=== PATIENT | female | born 1990 | race American Indian/Alaskan Native ===

== ENCOUNTER 2016-09-20 07:42 | Emergency (ER) | payer OTHER ==
[2016-09-20 08:57] LABS: Basophils % (Auto) 0.1 % (0.0-1.8); Eosinophils % (Auto) 0.3 % (0.0-4.3); Hemoglobin 13.1 gm/dl (10.1-14.3); Mean Corpuscular HGB Conc 33 % (30-34); Mean Corpuscular Hemoglobin 27 pg (28-32); Mean Corpuscular Volume 82 fl (79-97); Platelet Count 248 K/mm3 (140-440); Red Blood Count 4.89 M/mm3 (3.65-5.03); Red Cell Distribution Width 12.8 % (13.2-15.2); White Blood Count 4.8 K/mm3 (4.5-11.0)
[2016-09-20 09:01] LABS: Alanine Aminotransferase 14 units/L (7-56); Albumin 4.4 g/dL (3.9-5); Albumin/Globulin Ratio 1.3 %; Alkaline Phosphatase 60 units/L (35-129); Anion Gap 17 mmol/L; BUN/Creatinine Ratio 11.66; Bilirubin,Total 0.6 mg/dL (0.1-1.2); Blood Urea Nitrogen 7 mg/dL (7-17); Calcium 8.8 mg/dL (8.4-10.2); Carbon Dioxide 24 mmol/L (22-30); Chloride 101.1 mmol/L (98-107); Glucose 99 mg/dL (65-100); Lipase 84 units/L (13-60); Potassium 4.3 mmol/L (3.6-5.0); Sodium 138 mmol/L (137-145); Total Protein 7.8 g/dL (6.3-8.2)
[2016-09-20 10:05] LABS: Bacteria,Urine 2+ /HPF (Negative); Bilirubin,Urine NEG (Negative); Blood,Urine MOD (Negative); Ketones,Urine NEG (Negative); Leukocyte Esterase,Urine MOD (Negative); Mucus,Urine FEW /HPF; Nitrite,Urine NEG (Negative); Protein,Urine <15 mg/dL mg/dL (Negative); Urobilinogen,Urine < 2.0 mg/dL (<2.0)
[2016-09-20] MEDS ORDERED: NACL 0.9% 1000 ML 1,000 ML IV ONE (16:37)
[2016-09-20] MEDS ORDERED: ROCEPHIN/NS 1 GM/50 ML 1 GM/50 ML BAG IV ONE (16:37)
[2016-09-20] MEDS ORDERED: TORADOL IV ONE (16:37)
[2016-09-20] MEDS ORDERED: ZOFRAN IV ONE (16:37)
--- NOTE | 2016-09-20 16:40 | Emergency Department Report ---
ED General Adult HPI - General Chief complaint: Abdominal Pain Stated complaint: LUPUS/NAUSEA/DEHYDRATED Time Seen by Provider: 09/20/16 16:30 Source: patient, RN notes reviewed Mode of arrival: Ambulatory Limitations: No Limitations - History of Present Illness Initial comments: Primary care Dr.: Dr. Overton Rheumatology: Dr. Villafuerte at [facility] This is a 26-year-old female. She is previously unknown to me. She has a past medical history of lupus, and is on chronic plaquenil. She reports not being on any other immune modulating medications. The patient presents to the ER with 2 complaints. Her first complaint is left-sided dental pain, which is over chronically known fractured tooth (#16.) Pain has gotten slightly worse over the past 5-6 days. Her next complaint is bilateral flank pain, urinary frequency, nausea and vomiting. There is no lower abdominal pain. She reports having increased urinary frequency. She reports that "my kidneys are hurting me." She is defecating normally. There is no vaginal discharge. No suprapubic pain. Reports that she is not . No fevers. She thinks that she ate something that causes her have nausea and vomiting. She denies diarrhea to me. This is been going on for 2 days. -: Gradual Location: mouth, back Radiation: non-radiation Quality: aching Consistency: intermittent Improves with: rest Worsens with: movement Associated Symptoms: nausea/vomiting. denies: confusion, chest pain, cough, diaphoresis, fever/chills - Related Data Previous Rx's Medication Instructions Recorded Last Taken Type Amoxicillin/K Clav Tab [Augmentin 1 tab PO Q12HR #16 tab 09/20/16 Unknown Rx 875 mg] Ketorolac [Toradol] 10 mg PO Q6H PRN #20 tablet 09/20/16 Unknown Rx Ondansetron [Zofran Odt] 4 mg PO QID PRN #20 tab.rapdis 09/20/16 Unknown Rx oxyCODONE [Roxicodone] 5 mg PO Q6HR PRN #15 tablet 09/20/16 Unknown Rx Allergies Allergy/AdvReac Type Severity Reaction Status Date / Time acetaminophen Allergy Anaphylaxis Verified 09/20/16 08:02 [From Darvocet-N] propoxyphene napsylate Allergy Anaphylaxis Verified 09/20/16 08:02 [From Darvocet-N] Sulfa (Sulfonamide Allergy Itching Verified 09/20/16 08:02 Antibiotics) ED Review of Systems ROS: Stated complaint: LUPUS/NAUSEA/DEHYDRATED Other details as noted in HPI Constitutional: denies: fever Eyes: denies: vision change ENT: dental pain. denies: epistaxis Respiratory: denies: cough Cardiovascular: denies: chest pain Gastrointestinal: nausea Genitourinary: denies: dysuria Musculoskeletal: back pain Skin: denies: lesions Neurological: denies: headache Psychiatric: as per HPI ED Past Medical Hx - Past Medical History Additional medical history: Lupus - Surgical History Additional Surgical History: - Social History Smoking Status: Never Smoker Substance Use Type: Marijuana - Medications Home Medications: Home Medications Medication Instructions Recorded Confirmed Last Taken Type Amoxicillin/K Clav Tab [Augmentin 1 tab PO Q12HR #16 tab 09/20/16 Unknown Rx 875 mg] Ketorolac [Toradol] 10 mg PO Q6H PRN #20 tablet 09/20/16 Unknown Rx Ondansetron [Zofran Odt] 4 mg PO QID PRN #20 tab.rapdis 09/20/16 Unknown Rx oxyCODONE [Roxicodone] 5 mg PO Q6HR PRN #15 tablet 09/20/16 Unknown Rx ED Physical Exam - General Limitations: No Limitations General appearance: alert, in no apparent distress - Head Head exam: Present: atraumatic, normocephalic - Eye Eye exam: Present: normal appearance, EOMI. Absent: nystagmus - ENT ENT exam: Present: normal exam, normal orophraynx, mucous membranes moist, TM's normal bilaterally, normal external ear exam, other (chronically fractured tooth #16 is noted. There is no trismus or malocclusion. There is minimal gingival swelling. There is no stridor, there is no elevation at the base of the tongue.). Absent: mucous membranes dry - Neck Neck exam: Present: normal inspection, full ROM. Absent: tenderness, meningismus - Respiratory Respiratory exam: Present: normal lung sounds bilaterally. Absent: respiratory distress, wheezes, rales, rhonchi, stridor, chest wall tenderness, accessory muscle use, decreased breath sounds, prolonged expiratory - Cardiovascular Cardiovascular Exam: Present: regular rate, normal rhythm, normal heart sounds. Absent: bradycardia, tachycardia, irregular rhythm, systolic murmur, diastolic murmur, rubs, gallop - GI/Abdominal GI/Abdominal exam: Present: soft, normal bowel sounds. Absent: distended, tenderness, guarding, rebound, rigid, pulsatile mass - Extremities Exam Extremities exam: Present: normal inspection, full ROM, normal capillary refill. Absent: pedal edema, joint swelling, calf tenderness - Back Exam Back exam: Present: normal inspection, CVA tenderness (R), CVA tenderness (L) - Neurological Exam Neurological exam: Present: alert, oriented X3, normal gait, other (Extraocular movements intact. Tongue midline. No facial droop. Facial sensation intact to light touch in the V1, V2, V3 distribution bilaterally. 5 and 5 strength in 4 extremities.. Sensation is intact to light touch in 4 extremities.). Absent : motor sensory deficit - Psychiatric Psychiatric exam: Present: normal affect, normal mood - Skin Skin exam: Present: warm, dry, intact, normal color. Absent: rash ED Course Vital Signs 09/20/16 09/20/16 09/20/16 08:03 17:28 18:55 Temperature 98.8 F Pulse Rate 91 H 82 94 H Respiratory 18 20 18 Rate Blood Pressure 124/79 Blood Pressure 101/70 110/70 [Left] O2 Sat by Pulse 100 100 100 Oximetry - Reevaluation(s) Reevaluation #1: 09/20/16 17:36 Differential diagnosis: Pyelonephritis, mild, urinary tract infection, resolved nausea and vomiting, chronically fractured tooth #16 Assessment and plan: 26-year-old female with acute on chronic dental pain, mild possible superimposed gingivitis, mild pyelonephritis. She is afebrile with reassuring vital signs, tolerating liquid feeds. Minimal CVA tenderness, no lower abdominal tenderness, rebound or guarding. On my initial evaluation, she is tolerating liquid feeds, playing on a cellular phone. He looks quite comfortable. Laboratory studies reviewed and appreciated. I don't believe she requires advanced imaging based on her benign clinical presentation at this time. She will be treated with pain medication, loaded with ceftriaxone, discharged with Augmentin, structure to follow up with primary care, and dental. She'll be discharged at this time. Return precautions are reviewed. ED Medical Decision Making - Lab Data Result diagrams: 09/20/16 08:26 09/20/16 08:26 Vital Signs 09/20/16 09/20/16 08:03 17:28 Temperature 98.8 F Pulse Rate 91 H 82 Respiratory 18 20 Rate Blood Pressure 124/79 Blood Pressure 101/70 [Left] O2 Sat by Pulse 100 100 Oximetry Lab Results 09/20/16 09/20/16 09/20/16 Range/Units 08:26 08:26 09:39 WBC 4.8 (4.5-11.0) K/mm3 RBC 4.89 (3.65-5.03) M/mm3 Hgb 13.1 (10.1-14.3) gm/dl Hct 40.0 (30.3-42.9) % MCV 82 (79-97) fl MCH 27 L (28-32) pg MCHC 33 (30-34) % RDW 12.8 L (13.2-15.2) % Plt Count 248 (140-440) K/mm3 Lymph % (Auto) 14.3 (13.4-35.0) % Shelby % (Auto) 8.9 H (0.0-7.3) % Eos % (Auto) 0.3 (0.0-4.3) % Baso % (Auto) 0.1 (0.0-1.8) % Lymph # 0.7 L (1.2-5.4) K/mm3 Shelby # 0.4 (0.0-0.8) K/mm3 Eos # 0.0 (0.0-0.4) K/mm3 Baso # 0.0 (0.0-0.1) K/mm3 Seg Neutrophils % 76.4 H (40.0-70.0) % Seg Neutrophils # 3.7 (1.8-7.7) K/mm3 Sodium 138 (137-145) mmol/L Potassium 4.3 (3.6-5.0) mmol/L Chloride 101.1 (98-107) mmol/L Carbon Dioxide 24 (22-30) mmol/L Anion Gap 17 mmol/L BUN 7 (7-17) mg/dL Creatinine 0.6 L (0.7-1.2) mg/dL Estimated GFR > 60 ml/min BUN/Creatinine Ratio 11.66 % Glucose 99 (65-100) mg/dL Calcium 8.8 (8.4-10.2) mg/dL Total Bilirubin 0.6 (0.1-1.2) mg/dL AST 19 (5-40) units/L ALT 14 (7-56) units/L Alkaline Phosphatase 60 (35-129) units/L Total Protein 7.8 (6.3-8.2) g/dL Albumin 4.4 (3.9-5) g/dL Albumin/Globulin Ratio 1.3 % Lipase 84 H (13-60) units/L Urine Color Yellow (Yellow) Urine Turbidity Clear (Clear) Urine pH 7.0 (5.0-7.0) Ur Specific [place] 1.015 (1.003-1.030) Urine Protein <15 mg/dl (Negative) mg/dL Urine Glucose (UA) Neg (Negative) mg/dL Urine Ketones Neg (Negative) mg/dL Urine Blood Mod (Negative) Urine Nitrite Neg (Negative) Ur Reducing Substances Not Reportable Urine Bilirubin Neg (Negative) Urine Ictotest Not Reportable Urine Urobilinogen < 2.0 (<2.0) mg/dL Ur Leukocyte Esterase Mod (Negative) Urine WBC (Auto) 19.0 H (0.0-6.0) /HPF Urine RBC (Auto) 61.0 (0.0-6.0) /HPF U Epithel Cells (Auto) 5.0 (0-13.0) /HPF Urine Bacteria (Auto) 2+ (Negative) /HPF Urine Mucus Few /HPF Urine HCG, Qual Negative (Negative) Critical care attestation.: If time is entered above; I have spent that time in minutes in the direct care of this critically ill patient, excluding procedure time. ED Disposition Clinical Impression: Acute flank pain, Pain, dental Disposition: DISCHARGED TO HOME OR SELFCARE Is pt being admited?: No Does the pt Need Aspirin: No Condition: Stable Instructions: Acute Pyelonephritis (ED), Toothache (ED) Additional Instructions: Take the medications as directed. If taking the oxycodone for pain, do not drive, consume alcohol, make important decisions. Cultures were sent today, was also be available in the next 3-5 days. Have a primary care doctor contact medical records department to obtain culture results. Follow up with a primary care doctor within the next week. Follow-up with a dentist within the next week. Return to the ER right away with new pain, worsened pain, migration of pain, fevers or chills, intractable nausea or vomiting, inability to tolerate liquid feeds. Prescriptions: Amoxicillin/K Clav Tab [Augmentin 875 mg] 1 tab PO Q12HR #16 tab Ketorolac [Toradol] 10 mg PO Q6H PRN #20 tablet PRN Reason: Pain Ondansetron [Zofran Odt] 4 mg PO QID PRN #20 tab.rapdis PRN Reason: Nausea oxyCODONE [Roxicodone] 5 mg PO Q6HR PRN #15 tablet PRN Reason: Pain Referrals: PRIMARY CAREMD [Primary Care Provider] - 3-5 Days JESSICA OVERTON MD [Referring] - 3-5 Days Forms: Work/School Release Form(ED)
[2016-09-20 18:59] VITALS: BP 110/70
== END 2016-09-20 18:57 | disposition home or self-care (01) ==
LOC: ED 07:42
DX: K08.89 Other specified disorders of teeth and supporting structures (principal); R10.9 Unspecified abdominal pain; F12.10 Cannabis abuse, uncomplicated; Z88.2 Allergy status to sulfonamides; Z88.8 Allergy status to other drugs, medicaments and biological substances
CPT/HCPCS: 36415; 80053; 81001; 81025; 83690; 85025; 87086; 96365; 96375; 99283; J0696; J1885; J2405; J7030

== ENCOUNTER 2017-07-23 18:49 | Emergency (ER) | payer SELFPAY ==
[2017-07-23 19:37] VITALS: BP 127/88
[2017-07-24] MEDS ORDERED: XYLOCAINE 1% 20 mL INFILTRATI ONE (03:35)
--- NOTE | 2017-07-24 05:08 | Emergency Department Report ---
Abscess Boil HPI - HPI Chief Complaint: Skin/Abscess/Foreign Body Stated Complaint: BOIL UNDER LEFT ARM Time Seen by Provider: 07/24/17 04:36 Duration: 5 Days Location: Other (left axillary) History: Yes Pain, Yes Purulent Drainage, Yes Previous History, No Fever, No Numbness, No Foreign Body, No Insect Bite Home Medications: Previous Rx's Medication Instructions Recorded Last Taken Type Amoxicillin/K Clav Tab [Augmentin 1 tab PO Q12HR #16 tab 09/20/16 Unknown Rx 875 mg] Ketorolac [Toradol] 10 mg PO Q6H PRN #20 tablet 09/20/16 Unknown Rx Ondansetron [Zofran Odt] 4 mg PO QID PRN #20 tab.rapdis 09/20/16 Unknown Rx oxyCODONE [Roxicodone] 5 mg PO Q6HR PRN #15 tablet 09/20/16 Unknown Rx Clindamycin [Clindamycin CAP] 300 mg PO Q6HR #56 capsule 07/24/17 Unknown Rx traMADol [Ultram] 50 mg PO Q6HR PRN #20 tablet 07/24/17 Unknown Rx Allergies/Adverse Reactions: Allergies Allergy/AdvReac Type Severity Reaction Status Date / Time acetaminophen Allergy Anaphylaxis Verified 09/20/16 08:02 [From Darvocet-N] propoxyphene napsylate Allergy Anaphylaxis Verified 09/20/16 08:02 [From Darvocet-N] Sulfa (Sulfonamide Allergy Itching Verified 09/20/16 08:02 Antibiotics) ED Review of Systems ROS: Stated complaint: BOIL UNDER LEFT ARM Other details as noted in HPI Constitutional: denies: chills, fever Eyes: denies: eye pain, eye discharge, vision change ENT: denies: ear pain, throat pain Respiratory: denies: cough, shortness of breath, wheezing Cardiovascular: denies: chest pain, palpitations Endocrine: no symptoms reported Gastrointestinal: denies: abdominal pain, nausea, diarrhea Genitourinary: denies: urgency, dysuria, discharge Musculoskeletal: denies: back pain, joint swelling, arthralgia Skin: other (left axillary abscess ) Neurological: denies: headache, weakness, paresthesias Psychiatric: denies: anxiety, depression Hematological/Lymphatic: denies: easy bleeding, easy bruising ED Past Medical Hx - Past Medical History Additional medical history: Lupus - Surgical History Additional Surgical History: - Social History Smoking Status: Never Smoker Substance Use Type: Alcohol, Marijuana - Medications Home Medications: Home Medications Medication Instructions Recorded Confirmed Last Taken Type Amoxicillin/K Clav Tab [Augmentin 1 tab PO Q12HR #16 tab 09/20/16 Unknown Rx 875 mg] Ketorolac [Toradol] 10 mg PO Q6H PRN #20 tablet 09/20/16 Unknown Rx Ondansetron [Zofran Odt] 4 mg PO QID PRN #20 tab.rapdis 09/20/16 Unknown Rx oxyCODONE [Roxicodone] 5 mg PO Q6HR PRN #15 tablet 09/20/16 Unknown Rx Clindamycin [Clindamycin CAP] 300 mg PO Q6HR #56 capsule 07/24/17 Unknown Rx traMADol [Ultram] 50 mg PO Q6HR PRN #20 tablet 07/24/17 Unknown Rx ED Abscess Boil Physical Exam - Exam General: Vital signs noted. No distress. Alert and acting appropriately. Front/Back of Body, Lg (Color): 1 - left axillary abscess 2x3 cm fluctuant Size: 3 cm Exam: Yes Tenderness, Yes Fluctuance, Yes Surrounding Cellulites/Erythema, Yes Normal Neurologic Exam, Yes Normal Circulation, No Lymphangitis, No Crepitation , No Heart Murmur I & D Note - I & D Note I & D Note: left axillary abscess 2x3 cm fluctuant erythema painful, site cleaned wtih betadine solution anesthesia with lidocain 1% 2 cc, incision with 11 blade, moderate purulent output wound blunt probed with forceps, inoculations relieved wound irrigated with 40 cc steril saline, steril dressing applied all bleeding controlled pt given wound care instructions , pt verbalized agreement and understanding of same, pt tolerated procedure with minimal distress ED Course Vital Signs 07/23/17 19:33 Temperature 98.7 F Pulse Rate 108 H Respiratory 17 Rate Blood Pressure 127/88 O2 Sat by Pulse 99 Oximetry Critical care attestation.: If time is entered above; I have spent that time in minutes in the direct care of this critically ill patient, excluding procedure time. ED Medical Decision Making - Medical Decision Making left axillary abscess for i&d see procedure note, all bleeding controlled pt will follow up with pcp in 2-3 days for wound check , will dc to home in stable condition with rx for clindamycin, ultram, pt verbalized agreement and understanding of discharge plan. ED Disposition Clinical Impression: Abscess of axilla, left Disposition: DC-01 TO HOME OR SELFCARE Is pt being admited?: No Does the pt Need Aspirin: No Condition: Good Instructions: Abscess (ED) Prescriptions: Clindamycin [Clindamycin CAP] 300 mg PO Q6HR #56 capsule traMADol [Ultram] 50 mg PO Q6HR PRN #20 tablet PRN Reason: Pain Referrals: PRIMARY CARE,MD [Primary Care Provider] - 3-5 Days Forms: Work/School Release Form(ED) Time of Disposition: 05:13
== END 2017-07-24 05:20 | disposition home or self-care (01) ==
LOC: ED 18:49
DX: L02.412 Cutaneous abscess of left axilla (principal); F12.10 Cannabis abuse, uncomplicated; M32.9 Systemic lupus erythematosus, unspecified; Z88.6 Allergy status to analgesic agent; Z88.8 Allergy status to other drugs, medicaments and biological substances

== ENCOUNTER 2018-10-02 18:03 | Emergency (ER) | payer OTHER ==
[2018-10-02 18:47] VITALS: BP 115/66
--- NOTE | 2018-10-02 18:47 | Emergency Department Report ---
Chief Complaint: Vaginal Bleeding Stated Complaint: 8WKS CRAMPING AND BLEEDING Time Seen by Provider: 10/02/18 18:45 - HPI History of Present Illness: pt presents for vaginal spotting that started last night suprapubic cramping no urinary sx her OB group is: [facility], pt is 8 weeks , has had OB US /P:1/A:0 MSE screening note: Focused history and physical exam performed. Due to findings the following was ordered: labs, UA ED Disposition for MSE Condition: Stable
[2018-10-02 19:32] LABS: Basophils # (Auto) 0.1 K/mm3 (0.0-0.1); Basophils % (Auto) 2.4 % (0.0-1.8); Eosinophils % (Auto) 1.1 % (0.0-4.3); Hemoglobin 12.3 gm/dl (10.1-14.3); Lymphocytes # (Auto) 1.3 K/mm3 (1.2-5.4); Mean Corpuscular HGB Conc 34 % (30-34); Mean Corpuscular Volume 85 fl (79-97); Monocytes # (Auto) 0.4 K/mm3 (0.0-0.8); Monocytes % (Auto) 15.2 % (0.0-7.3); Platelet Count 282 K/mm3 (140-440); Red Blood Count 4.25 M/mm3 (3.65-5.03)
[2018-10-02 20:20] LABS: Bilirubin,Urine NEG (Negative); Blood,Urine NEG (Negative); Color,Urine Straw (Yellow); Protein,Urine <15 mg/dL mg/dL (Negative); RBC,Urine < 1.0 /HPF (0.0-6.0); Urobilinogen,Urine < 2.0 mg/dL (<2.0); WBC,Urine < 1.0 /HPF (0.0-6.0)
== END 2018-10-02 22:30 | disposition left against medical advice (07) ==
LOC: ED 18:03
DX: O46.91 Antepartum hemorrhage, unspecified, first trimester (principal); Z3A.08 8 weeks gestation of pregnancy; Z53.21 Procedure and treatment not carried out due to patient leaving prior to being seen by health care provider
CPT/HCPCS: 36415; 81001; 84702; 85025; 86900; 86901

== ENCOUNTER 2019-05-20 17:44 | Outpatient (CLI) | payer OTHER ==
[2019-05-20] MEDS ORDERED: TERBUTALINE 1 MG/1 ML INJ SUB-Q ONE (20:13)
[2019-05-20 20:20] LABS: Amphetamine Screen,Urine PRESUMPTIVE NEGATIVE; Benzodiazepines Screen,Urine PRESUMPTIVE NEGATIVE; Cannabinoid Screen,Urine PRESUMPTIVE NEGATIVE; Cocaine Screen,Urine PRESUMPTIVE NEGATIVE; Methadone Screen,Urine PRESUMPTIVE NEGATIVE; Opiate Screen,Urine PRESUMPTIVE NEGATIVE
[2019-05-20 20:21] LABS: Bilirubin,Urine NEG (Negative); Blood,Urine NEG (Negative); Color,Urine Yellow (Yellow); Mucus,Urine FEW /HPF; Protein,Urine <15 mg/dL mg/dL (Negative); Urobilinogen,Urine < 2.0 mg/dL (<2.0)
[2019-05-20 20:27] LABS: Alanine Aminotransferase 22 units/L (7-56); Uric Acid 4.2 mg/dL (3.5-7.6)
[2019-05-20 20:39] LABS: Hematocrit 38.9 % (30.3-42.9); Hemoglobin 12.9 gm/dl (10.1-14.3); Mean Corpuscular HGB Conc 33 % (30-34); Mean Corpuscular Volume 84 fl (79-97); Platelet Count 297 K/mm3 (140-440); Red Blood Count 4.64 M/mm3 (3.65-5.03); Red Cell Distribution Width 16.5 % (13.2-15.2)
[2019-05-20 21:15] VITALS: BP 109/64
== END 2019-05-20 22:04 | disposition home or self-care (01) ==
LOC: TRG 17:44
PROVIDERS: ATTEND Obstetrics & Gynecology
DX: O26.893 Other specified pregnancy related conditions, third trimester (principal); R42 Dizziness and giddiness; R11.0 Nausea; R60.0 Localized edema; O99.89 Other specified diseases and conditions complicating pregnancy, childbirth and the puerperium; H53.8 Other visual disturbances; O47.1 False labor at or after 37 completed weeks of gestation; Z3A.37 37 weeks gestation of pregnancy
CPT/HCPCS: 36415; 59025; 80307; 81001; 82565; 82962; 83615; 84450; 84460; 84550; 85027; 96372; J3105

== ENCOUNTER 2019-05-28 09:34 | Inpatient (IN) | payer OTHER ==
--- NOTE | 2019-05-27 15:05 | History and Physical Report ---
History of Present Illness Date of examination: 05/23/19 Chief complaint: Desires repeat c/s History of present illness: Past History : 2 Term Births: 1 Premature Births: 0 Living Children: 1 Para: 1 Mult. Births: 0 Prev : 1 Prev. attempt? none Aborta: 0 Elect. Ab: 0 Spont. Ab: 0 Ectopics: 0 # 1 Delivery date: 10/24/2010 Weeks Gestation: 41 labor: no Delivery type: Anesthesia type: epidural Delivery location: [facility] Infant Sex: Female weight: 9-15 Comments: meconium aspiration, distress Risk Factors: Smoked Tobacco Use: Former smoker Smokeless Tobacco Use: Never Counseled to quit/cut down: yes Passive smoke exposure: no Drug use: no HIV high-risk behavior: low risk Alcohol use: no Seatbelt use: preg-food counselor % Dietary Counseling: pn yes Past Medical History: sickle cell trait + Autoimmune Disorder: Sjogren, Raynauds and discoid lupus Dr. Villafuerte Past Medical History Abnormal PAP: positive BRIAN Exposure: negative Infertility: negative Uterine Anomaly: negative Uterine Surgery (not C/S): negative Other Gynecologic Problems: negative Social Hx: Patient is single. lives with FOC and child. Smoking History: Patient currently smokes every day. Patient has been counseled to quit. Infection History Hx of STD: none HIV Risk Eval: low risk Hepatitis B Risk Eval: low risk Personal hx. of genital herpes: no Partner hx. of genital herpes: no Rash, Viral, or Febrile illness since last LMP? no Varicella/Chicken Pox Status: Previous Disease TB Risk: no Genetic History Congenital Heart Defect: Mom: no Dad: no James Disease: Mom: no Dad: no Thalassemia Mom: no Dad: no Neural Tube Defect Mom: no Dad: no Down's Syndrome Mom: no Dad: no Ajay-Sachs Mom: no Dad: no Sickle Cell Disease/Trait Mom: yes Dad: no Hemophilia Mom: no Dad: no Muscular Dystrophy Mom: no Dad: no Cystic Fibrosis Mom: no Dad: no Marshall Chorea Mom: no Dad: no Mental Retardation Mom: no Dad: no Fragile X Mom: no Dad: no Other Genetic/Chromosomal Disorder Mom: no Dad: no Child w/other defect Mom: no Dad: no Enviromental Exposures Enviromental Exposures Reviewed Xray Exposure: no Medication, drug, or alcohol use since LMP: no Chemical/Other Exposure: no Exposure to Cat Liter: no Hx of Parvovirus (Fifth Disease): no Occupational Exposure to Children: none Active Medications (reviewed today): PLUS 27-1 MG ORAL TABLET ( VIT-FE FUMARATE-FA) 1 po daily PREDNISONE 5 MG ORAL TABLET (PREDNISONE) QOD since the beginning of the Current Allergies (reviewed today): SULFA (Critical) BACTRIM (Critical) Physical Exam General appearance: well nourished, healthy appearing, no distress Chest/Lungs: respiratory effort normal, lungs clear to auscultation Cardiovascular: normal rate and rhythm Abdomen/GI: soft, nontender Past History - Obstetrical History Expected Date of Delivery: 06/04/19 Actual Gestation: 38 Week(s) 6 Day(s) : 2 Para: 1 Hx # Term Pregnancies: 1 (c/s) Medications and Allergies Allergies Allergy/AdvReac Type Severity Reaction Status Date / Time acetaminophen Allergy Anaphylaxis Verified 09/20/16 08:02 [From Darvocet-N] propoxyphene napsylate Allergy Anaphylaxis Verified 09/20/16 08:02 [From Darvocet-N] Sulfa (Sulfonamide Allergy Itching Verified 09/20/16 08:02 Antibiotics) Home Medications Medication Instructions Recorded Confirmed Last Taken Type Amoxicillin/K Clav Tab [Augmentin 1 tab PO Q12HR #16 tab 09/20/16 Unknown Rx 875 mg] Ketorolac [Toradol] 10 mg PO Q6H PRN #20 tablet 09/20/16 Unknown Rx Ondansetron [Zofran Odt] 4 mg PO QID PRN #20 tab.rapdis 09/20/16 Unknown Rx oxyCODONE [Roxicodone] 5 mg PO Q6HR PRN #15 tablet 09/20/16 Unknown Rx Clindamycin [Clindamycin CAP] 300 mg PO Q6HR #56 capsule 07/24/17 Unknown Rx traMADoL [Ultram] 50 mg PO Q6HR PRN #20 tablet 07/24/17 Unknown Rx Results All other labs normal. Assessment and Plan - Patient Problems (1) Maternal care due to low transverse uterine scar from previous delivery Status: Acute Plan to address problem: Consent reviewed and signed .Laparotomy explained to patient. The risks and alternatives for this surgery were reviewed with the patient. She was informed of possible bleeding, infection, injury to bowel, bladder, ureters or other adjacent organs. The patient was instructed/informed the following: The normal length of hospital stay for this procedure. Nothing to eat or drink after midnight the evening prior to surgery. The usual discomforts associated with this procedure were detailed. . Patient was given ample opportunity to have all her questions answered before signing i nformed consent. She declines sterilization, states she desires IUD placement in the PP period (2) 39 weeks gestation of Status: Acute (3) Lupus (systemic lupus erythematosus) Status: Chronic (4) Sickle cell trait Status: Chronic
[~2019-05-28 09:34] MED LIST: EMLA CREAM 5 GM TP PRN; LACTATED RINGERS 1,000 ML IV SCH; OXYTOCIN 20 UNIT/1000ML DRIP 20 UNITS/1,000 ML BAG IV SCH; ceFAZolin/Water 2 GM/20 ML 2 GM/20 ML SYRINGE IV NR
[2019-05-28] MEDS ORDERED: METOCLOPRAMIDE 10 MG/2 ML INJ IV NR (11:00)
[2019-05-28] MEDS ORDERED: BICITRA ORAL LIQD 30ML PO NR (11:00)
[2019-05-28] MEDS ORDERED: FAMOTIDINE 20 MG/2 ML INJ IV NR (11:00)
--- NOTE | 2019-05-28 11:56 | Anesthesia Consultation ---
Anesthesia Consult and Med Hx Date of service: 05/28/19 - Airway Anesthetic Teeth Evaluation: Good ROM Head & Neck: Adequate Mental/Hyoid Distance: Adequate Mallampati Class: Class II Intubation Access Assessment: Probably Good - Pulmonary Exam CTA: Yes - Cardiac Exam Cardiac Exam: RRR - Pre-Operative Health Status ASA Pre-Surgery Classification: ASA3 Proposed Anesthetic Plan: Spinal - Pulmonary Hx Asthma: No - Cardiovascular System Hx Hypertension: No - Central Nervous System Hx Seizures: No Hx Psychiatric Problems: Yes (PP DEPRESSION) - Endocrine Hx Renal Disease: No Hx Hypothyroidism: No Hx Hyperthyroidism: No - Hematic Hx Anemia: No Hx Sickle Cell Disease: No - Other Systems Hx Alcohol Use: No - Additional Comments Anesthesia Medical History Comments: Sjogren, Raynauds and discoid lupus
--- NOTE | 2019-05-28 11:57 | Anesthesia Day of Surgery ---
Anesthesia Day of Surgery - Day of Surgery Patient Examined: Yes Patient H&P Reviewed: Yes Patient is NPO: Yes
[2019-05-28 12:28] LABS: Hematocrit 43.4 % (30.3-42.9); Hemoglobin 14.3 gm/dl (10.1-14.3); Mean Corpuscular HGB Conc 33 % (30-34); Mean Corpuscular Volume 84 fl (79-97); Platelet Count 287 K/mm3 (140-440); Red Blood Count 5.17 M/mm3 (3.65-5.03); Red Cell Distribution Width 16.7 % (13.2-15.2)
[2019-05-28] MEDS ORDERED: WATER FOR IRRIG STERILE 1,500 ML BOTTLE IR ONE (13:55)
[2019-05-28] MEDS ORDERED: SODIUM CHLORIDE 0.9% IRR 1,500 ML BOTTLE IR ONE (13:55)
[2019-05-28] MEDS ORDERED: PHENYLEPHRINE/NS 1,000 MCG/10 ML SYRINGE (OR USE) IV ONE (14:00)
[2019-05-28] MEDS ORDERED: KETOROLAC 30 MG/1 ML INJ ONE (14:00)
--- NOTE | 2019-05-28 14:54 | Post Anesthesia Evaluation ---
- Post Anesthesia Evaluation Patient Participated: Yes Airway Patent: Yes Stable Respiratory Function: Yes Nausea/Vomiting: No Temp > 96.8F: Yes Pain Manageable: Yes Adequeate Hydration: Yes Anesthesia Complications: No Block Receding Appropriately: Yes
--- NOTE | 2019-05-28 15:40 | Operative Report ---
PREOPERATIVE DIAGNOSES: 1. Intrauterine at 39 weeks. 2. Previous , desires repeat . 3. Discoid lupus. 4. Sickle cell trait. POSTOPERATIVE DIAGNOSES: 1. Intrauterine at 39 weeks. 2. Previous , desires repeat . 3. Discoid lupus. 4. Sickle cell trait. PROCEDURE: Repeat low transverse delivery. SURGEON: Dania Logan MD. STORAGE GARAGE ATTENDANT: Gia Hairston CST. ANESTHESIA: Spinal epidural. COMPLICATIONS: None. ESTIMATED BLOOD LOSS: 500 mL. ANESTHESIOLOGIST: Dr. Lane. FINDINGS: Liveborn female infant, weight 7 pounds 8 ounces, Apgars 8 and 9. Grossly normal tubes and ovaries. Small uterine fibroids. DESCRIPTION OF PROCEDURE: After risks, benefits, complications, consequences, and alternatives for the procedure discussed with the patient, she voiced understanding and desired to proceed. She was taken to the OR where combined spinal epidural was placed. She was placed in the left lateral tilt position and prepped and draped in the usual sterile fashion. Timeout was performed. Once an appropriate level of anesthesia was noted, a Pfannenstiel incision was made and extended to the fascia, which was incised and extended lateral direction. The overlying fascia was sharply dissected away from the underlying rectus muscle superior and inferior direction. Midline was entered bluntly. The vesicouterine fold was incised with blunt dissection. Bladder flap was created. A transverse incision was made in the lower uterine segment and extended in superolateral direction with finger fractionation. Thick meconium fluid was noted. was delivered from the cephalic position with extension of the uterine incision as well as rectus muscles. had spontaneous cry and excellent tone. Mouth and nose were bulb suctioned. Cord was doubly clamped and cut. was given to the resuscitation team present. The placenta was manually extracted. The uterus was exteriorized and cleaned of any further products of conception and placental tissue. The uterine incision was reapproximated using 0 Vicryl in a running interlocking stitch followed by further suture of 0 Vicryl in an imbricating fashion. Once hemostasis was noted, the uterus was allowed back in the pelvic cavity. The pelvis was irrigated with warm normal saline. Once hemostasis was noted, Surgicel was placed to ensure further hemostasis. Interceed was placed to decrease development of adhesions. Again once hemostasis was noted, the rectus muscles were reapproximated using 0 Vicryl in interrupted zgvlmy-od-[id number] fashion. Once hemostasis was noted, the rectus fascia was reapproximated using 0 Vicryl in a simple running stitch. Once hemostasis was noted, the skin was reapproximated using 4-0 Vicryl on a Hollis needle in a subcuticular manner. The patient tolerated the procedure well and was taken to recovery room in stable condition. Counts were correct x 3. JOB# [id number] LDR/NTS
[2019-05-28] MEDS ORDERED: OXYTOCIN 20 UNIT/1000ML DRIP 20 UNITS/1,000 ML BAG IV SCH (16:55)
[2019-05-28] MEDS ORDERED: MORPHINE 4 MG/1 ML INJ IV PRN (16:55)
[2019-05-28] MEDS ORDERED: NALOXONE 0.4 MG/1 ML INJ IV PRN (16:55)
[2019-05-28] MEDS ORDERED: MAGNESIUM HYDROXIDE (MOM) ORAL LIQD UDC PO PRN (16:55)
[2019-05-28] MEDS ORDERED: SIMETHICONE 80 MG CHEW TAB PO PRN (16:55)
[2019-05-28] MEDS ORDERED: MORPHINE 2 MG/1 ML INJ IV PRN (16:55)
[2019-05-28] MEDS ORDERED: ACETAMINOPHEN 325 MG TAB PO PRN (16:55)
[2019-05-28] MEDS ORDERED: WITCH HAZEL/ GLYCERIN PAD TP PRN (16:55)
[2019-05-28] MEDS ORDERED: ONDANSETRON 4 MG/2 ML INJ IV PRN (16:55)
[2019-05-28] MEDS ORDERED: ACETAMINOPHEN 650 MG RECT SUPP PR PRN (16:55)
[2019-05-28] MEDS ORDERED: D5W/LACTATED RINGERS 1,000 ML IV SCH (16:55)
[2019-05-28] MEDS ORDERED: LANOLIN/ZINC/DIMETHICONE (LANSINOH) 7 GM TP PRN (17:55)
[2019-05-28] MEDS: KETOROLAC 30 MG/1 ML INJ IV SCH (20:29)
[2019-05-28] MEDS: ceFAZolin/NS 1 GM/50 ML 1 GM/50 ML BAG IV SCH (21:46)
[2019-05-29] MEDS: KETOROLAC 30 MG/1 ML INJ IV SCH (03:10)
[2019-05-29] MEDS: ceFAZolin/NS 1 GM/50 ML 1 GM/50 ML BAG IV SCH (05:44)
[2019-05-29 06:34] LABS: Hematocrit 35.8 % (30.3-42.9)
[2019-05-29] MEDS: oxyCODONE /ACETAMINOPHEN 5-325MG TAB PO PRN ×3 (06:51→21:36)
--- NOTE | 2019-05-29 10:21 | Progress Note ---
Assessment and Plan - Patient Problems (1) delivery delivered Current Visit: Yes Status: Acute Plan to address problem: Postoperative day #1. Patient without nausea vomiting. Patient tolerating advancing diet well Patient without fever. Will ambulate in halls. We will continue routine postoperative care. is doing well. Will continue routine post operative care. Patient's postoperative hematocrit is 35.8%. Patient was breast-feeding and desires ParaGard for control. (2) Lupus (systemic lupus erythematosus) Current Visit: No Status: Chronic Qualifiers: Systemic lupus erythematosus organ involvement: unspecified Subjective - Subjective Date of service: 05/29/19 Patient reports: appetite normal, voiding normally, pain well controlled, flatus, ambulating normally [place]: doing well Objective - Vital Signs Latest vital signs: Vital Signs Temp Pulse Resp BP BP Pulse Ox 05/29/19 07:29 18 05/29/19 06:51 18 05/29/19 05:05 98.7 F 104 H 18 108/65 96 05/29/19 00:56 99.7 F H 102 H 18 103/64 96 05/28/19 21:02 98.6 F 101 H 20 118/77 97 05/28/19 15:55 86 18 103/67 96 05/28/19 15:45 90 18 106/67 96 05/28/19 15:31 98 H 18 100/60 96 05/28/19 15:15 93 H 17 106/55 96 05/28/19 15:00 99 H 14 99/56 97 05/28/19 14:55 103 H 14 96/51 97 05/28/19 14:51 97.2 F L 101 H 12 98/55 97 05/28/19 12:20 98.4 F 99 H 20 118/76 97 Intake and Output 05/28/19 05/29/19 05/29/19 22:59 06:59 14:59 Intake Total 50 120 Output Total 4200 500 Balance 50 -4080 -500 Intake: IV 50 ANCEF/NS 1 GM/50 ML 1 gm 50 In 50 ml @ 100 mls/hr IV Q8H [facility] Rx#:[id number] Intake, Free Water 120 Output: Urine 4200 500 Indwelling Catheter 3900 Void 300 500 Other: Total, Output Amount 300 500 # Voids Void 1 1 - Exam Breasts: Present: deferred Cardiovascular: Present: Regular rate Abdomen: Present: normal appearance, tenderness, normal bowel sounds (appropriately.) Uterus: Present: firm, fundal height below umbilicus Extremities: Present: edema Incision: Present: dry, dressed - Labs Labs: Abnormal lab results 05/28/19 Range/Units Unknown RBC 5.17 H (3.65-5.03) M/mm3 Hct 43.4 H (30.3-42.9) % RDW 16.7 H (13.2-15.2) %
[2019-05-29] MEDS: predniSONE 5 MG TAB PO SCH (11:13)
[2019-05-29] MEDS: IBUPROFEN 800 MG TAB PO PRN ×2 (11:14→19:52)
[2019-05-29] MEDS ORDERED: FLU VACC QUAD 2019-20 (3 YR UP)/PF 60 MCG/0.5 ML SYRINGE IM ONE (12:00)
[2019-05-29] MEDS ORDERED: TETANUS,DIPH,PERTUSS(ACELL) VACCINE 0.5 ML SYRINGE IM ONE (14:51)
[2019-05-30] MEDS: oxyCODONE /ACETAMINOPHEN 5-325MG TAB PO PRN ×3 (05:37→18:02)
--- NOTE | 2019-05-30 11:19 | Progress Note ---
Assessment and Plan - Patient Problems (1) delivery delivered Current Visit: Yes Status: Acute Plan to address problem: Postoperative day #2 doing wants d/c tomorrow (2) Lupus (systemic lupus erythematosus) Current Visit: No Status: Chronic Qualifiers: Systemic lupus erythematosus organ involvement: unspecified Subjective - Subjective Date of service: 05/30/19 Principal diagnosis: POD #2 Patient reports: appetite normal, voiding normally, pain well controlled, flatus [place]: doing well Objective - Vital Signs Latest vital signs: Vital Signs Temp Pulse Resp BP Pulse Ox 05/30/19 10:02 98.7 F 95 H 16 120/68 96 05/30/19 05:37 18 05/29/19 21:36 18 05/29/19 19:52 18 Intake and Output 05/29/19 05/30/19 05/30/19 22:59 06:59 14:59 Intake Total 360 120 Balance 360 120 Intake: Oral 120 Intake, Free Water 360 Other: Total, Intake Amount 120 # Voids Void 1 1 - Exam Breasts: Present: deferred Cardiovascular: Present: Regular rate Lungs: Present: Normal air movement Abdomen: Present: normal appearance, normal bowel sounds Uterus: Present: firm, fundal height below umbilicus Extremities: Present: edema Incision: Present: normal, dry, intact
[2019-05-30] MEDS: IBUPROFEN 800 MG TAB PO PRN ×2 (16:28→23:07)
[2019-05-31] MEDS: oxyCODONE /ACETAMINOPHEN 5-325MG TAB PO PRN ×2 (02:40→10:40)
[2019-05-31] MEDS: IBUPROFEN 800 MG TAB PO PRN (08:30)
[2019-05-31] MEDS: predniSONE 5 MG TAB PO SCH (10:00)
--- NOTE | 2019-05-31 11:12 | Discharge Summary ---
Providers - Providers Date of Admission: 05/28/19 09:34 Date of discharge: 05/31/19 (desires d/c home today) Attending physician: KATEY FLOREZ 05/28/19 16:55 Consult to Match Maker [CONS] Routine Reason For Exam: Primary care physician: KATEY FLOREZ Hospitalization Reason for admission: scheduled repeat c/s Condition: Good Pertinent studies: postop H&H 12.0/35.8 Procedures: repeat c/s Hospital course: uncomplicated repeat c/s and postop course. Disposition: DC- TO HOME OR SELFCARE - Discharge Diagnoses (1) delivery delivered Status: Acute (2) Lupus (systemic lupus erythematosus) Status: Chronic Qualifiers: Systemic lupus erythematosus organ involvement: unspecified Core Measure Documentation - Palliative Care Palliative Care/ Comfort Measures: Not Applicable - Core Measures Any of the following diagnoses?: none Exam - Constitutional Vitals: Temp Pulse Resp BP Pulse Ox 98.0 F 90 20 123/83 98 05/31/19 07:16 05/31/19 07:16 05/31/19 07:16 05/31/19 07:16 05/31/19 07:16 General appearance: Present: no acute distress, well-nourished - EENT Eyes: Present: PERRL ENT: hearing intact, clear oral mucosa - Neck Neck: Present: supple, normal ROM - Respiratory Respiratory effort: normal Respiratory: bilateral: CTA - Cardiovascular Rhythm: regular - Extremities Extremities: No edema - Abdominal General gastrointestinal: Present: soft, non-tender, normal bowel sounds - Integumentary Integumentary: Present: clear, warm, dry - Musculoskeletal Musculoskeletal: strength equal bilaterally - Psychiatric Psychiatric: appropriate mood/affect, intact judgment & insight - Neurologic Neurologic: CNII-XII intact, moves all extremities - Additional findings Additional findings: fundus firm, lochia scant, VSSAF, , incision D&I Plan Activity: advance as tolerated Diet: regular Wound: open to air, keep clean and dry Follow up with: KATEY FLOREZ MD [Primary Care Provider] - 7 Days (Congratulations! Please call [phone] to schedule your incision check in 1 week. Call for any questions or concerns.) Forms: [facility] Discharge Summary Prescriptions: Ibuprofen [Motrin 800 MG tab] 800 mg PO TID PRN #30 tablet PRN Reason: Pain oxyCODONE /ACETAMINOPHEN [Percocet 5/325 mg] 1 - 2 tab PO Q4HR PRN #20 tablet PRN Reason: Pain
[2019-05-31 12:43] VITALS: BP 125/82
== END 2019-05-31 12:51 | disposition home or self-care (01) | DRG 788 ==
LOC: APU 09:34 → OB 16:53
PROVIDERS: ADMIT Obstetrics & Gynecology; ATTEND Obstetrics & Gynecology
PROC: 10D00Z1 Extraction of Products of Conception, Low, Open Approach (ICD-10-PCS; principal; 2019-05-28)
PROC: 3E0234Z Introduction of Serum, Toxoid and Vaccine into Muscle, Percutaneous Approach (ICD-10-PCS; 2019-05-29)
DX: O34.211 Maternal care for low transverse scar from previous cesarean delivery (principal); Z3A.39 39 weeks gestation of pregnancy; Z37.0 Single live birth; M32.9 Systemic lupus erythematosus, unspecified; D57.3 Sickle-cell trait; O77.0 Labor and delivery complicated by meconium in amniotic fluid; Z23 Encounter for immunization; Z87.891 Personal history of nicotine dependence; Z88.1 Allergy status to other antibiotic agents; Z88.8 Allergy status to other drugs, medicaments and biological substances
CPT/HCPCS: 36415; 85014; 85018; 85027; 86592; 86850; 86900; 86901; 90471; G0378; A6250; C1765; J0690; J1885; J2270; J2370; J2590; J2765; J7120; J7121; J7512

== ENCOUNTER 2020-11-25 21:47 | Emergency (ER) | payer OTHER ==
[2020-11-25 22:21] VITALS: BP 125/84
[2020-11-25 23:01] LABS: Basophils % (Auto) 0.4 % (0.0-1.8); Eosinophils % (Auto) 0.4 % (0.0-4.3); Hematocrit 37.1 % (30.3-42.9); Hemoglobin 12.8 gm/dl (10.1-14.3); Lymphocytes # (Auto) 1.2 K/mm3 (1.2-5.4); Lymphocytes % (Auto) 28.5 % (13.4-35.0); Mean Corpuscular HGB Conc 34 % (30-34); Mean Corpuscular Volume 84 fl (79-97); Monocytes # (Auto) 0.6 K/mm3 (0.0-0.8); Monocytes % (Auto) 13.4 % (0.0-7.3); Platelet Count 297 K/mm3 (140-440); Red Blood Count 4.44 M/mm3 (3.65-5.03); Red Cell Distribution Width 11.6 % (13.2-15.2)
[2020-11-25 23:08] LABS: Bilirubin,Urine NEG (Negative); Blood,Urine LG (Negative); Color,Urine Yellow (Yellow); Mucus,Urine FEW /HPF; Urobilinogen,Urine < 2.0 mg/dL (<2.0)
--- NOTE | 2020-11-26 03:16 | Ultrasound Report ---
EARLY OBSTETRICAL ULTRASOUND INDICATION: vag bleed COMPARISON: None pertinent available TECHNIQUE: Transabdominal and endovaginal FINDINGS: Intrauterine gestational sac is noted with yolk sac and pole seen. Cardiac activity w as documented with heart rate of 137 bpm period estimated gestational age by crown-rump length is 7 weeks 2 days which is slightly advanced compared to the clinical dating of 6 weeks 1 day. There may be a minimal implantational bleed. Left ovary measures 4 cm in length and shows a 2.3 cm mildly complex cyst as well as a 2.2 cm mildly complex cyst. The right ovary measures 3.4 cm in length and shows no abnormalities. Flow is noted in both ovaries. No free fluid is seen. IMPRESSION: Early intrauterine at 7 weeks 2 days with cardiac activity. Possible minimal im plantational bleed. Signer Name: Carloz Conde MD Signed: 11/26/2020 3:12 AM Workstation Name: [id number]
--- NOTE | 2020-11-26 04:50 | Emergency Department Report ---
ED Female HPI - General Chief complaint: Vaginal Bleeding Stated complaint: HEAVY VAGINAL BLEED/7WKS PREG Time Seen by Provider: 11/26/20 04:45 Source: patient Mode of arrival: Ambulatory Limitations: No Limitations - History of Present Illness Initial comments: Patient is a 30-year-old female who is 7 weeks who presents for vaginal bleeding times this evening. She is sleeping is described as dark red moderate amount. There is no fever, chills, or nausea vomiting. There is mild cramping and back pain. Patient denies fever or chills. Patient is G2, . MD Complaint: vaginal bleeding - Related Data Previous Rx's Medication Instructions Recorded Last Taken Type Amoxicillin/K Clav Tab [Augmentin 1 tab PO Q12HR #16 tab 09/20/16 Unknown Rx 875 mg] Ketorolac [Toradol] 10 mg PO Q6H PRN #20 tablet 09/20/16 Unknown Rx Ondansetron [Zofran Odt] 4 mg PO QID PRN #20 tab.rapdis 09/20/16 Unknown Rx oxyCODONE [Roxicodone] 5 mg PO Q6HR PRN #15 tablet 09/20/16 Unknown Rx Clindamycin [Clindamycin CAP] 300 mg PO Q6HR #56 capsule 07/24/17 Unknown Rx traMADoL [Ultram] 50 mg PO Q6HR PRN #20 tablet 07/24/17 Unknown Rx Ibuprofen [Motrin 800 MG tab] 800 mg PO TID PRN #30 tablet 05/28/19 Unknown Rx oxyCODONE /ACETAMINOPHEN [Percocet 1 - 2 tab PO Q4HR PRN #20 tablet 05/28/19 Unknown Rx 5/325 mg] Acetaminophen [Acetaminophen TAB] 650 mg PO Q6HR PRN #30 tablet 11/26/20 Unknown Rx Allergies Allergy/AdvReac Type Severity Reaction Status Date / Time acetaminophen Allergy Anaphylaxis Verified 05/28/19 10:01 [From Darvocet-N] propoxyphene napsylate Allergy Anaphylaxis Verified 05/28/19 10:01 [From Darvocet-N] Sulfa (Sulfonamide Allergy Itching Verified 05/28/19 10:01 Antibiotics) ED Review of Systems ROS: Stated complaint: HEAVY VAGINAL BLEED/7WKS PREG Other details as noted in HPI Constitutional: denies: chills, fever Eyes: denies: eye pain, eye discharge, vision change ENT: denies: ear pain, throat pain Respiratory: denies: cough, shortness of breath, wheezing Cardiovascular: denies: chest pain, palpitations Endocrine: no symptoms reported Gastrointestinal: abdominal pain. denies: nausea, vomiting Genitourinary: denies: urgency, dysuria, frequency, hematuria, discharge Musculoskeletal: back pain Skin: as per HPI Neurological: denies: headache, weakness, paresthesias Psychiatric: denies: anxiety, depression Hematological/Lymphatic: denies: easy bleeding, easy bruising ED Past Medical Hx - Past Medical History Hx Hypertension: No Hx Congestive Heart Failure: No Hx Diabetes: No Hx Deep Vein Thrombosis: No Hx Renal Disease: No Hx Sickle Cell Disease: No Hx Seizures: No Hx Asthma: No Hx COPD: No Hx HIV: No Additional medical history: Discoid Lupus - Surgical History Additional Surgical History: - Social History Smoking Status: Never Smoker - Medications Home Medications: Home Medications Medication Instructions Recorded Confirmed Last Taken Type Amoxicillin/K Clav Tab [Augmentin 1 tab PO Q12HR #16 tab 09/20/16 05/29/19 Unknown Rx 875 mg] Ketorolac [Toradol] 10 mg PO Q6H PRN #20 tablet 09/20/16 05/29/19 Unknown Rx Ondansetron [Zofran Odt] 4 mg PO QID PRN #20 tab.rapdis 09/20/16 05/29/19 Unknown Rx oxyCODONE [Roxicodone] 5 mg PO Q6HR PRN #15 tablet 09/20/16 05/29/19 Unknown Rx Clindamycin [Clindamycin CAP] 300 mg PO Q6HR #56 capsule 07/24/17 05/29/19 Unknown Rx traMADoL [Ultram] 50 mg PO Q6HR PRN #20 tablet 07/24/17 05/29/19 Unknown Rx Ibuprofen [Motrin 800 MG tab] 800 mg PO TID PRN #30 tablet 05/28/19 Unknown Rx oxyCODONE /ACETAMINOPHEN [Percocet 1 - 2 tab PO Q4HR PRN #20 tablet 05/28/19 Unknown Rx 5/325 mg] Acetaminophen [Acetaminophen TAB] 650 mg PO Q6HR PRN #30 tablet 11/26/20 Unknown Rx ED Physical Exam - General Limitations: No Limitations General appearance: alert, in no apparent distress - Head Head exam: Present: atraumatic, normocephalic - Eye Eye exam: Present: normal appearance, EOMI Pupils: Present: normal accommodation - ENT ENT exam: Present: mucous membranes moist - Neck Neck exam: Present: normal inspection, full ROM. Absent: tenderness - Respiratory Respiratory exam: Present: normal lung sounds bilaterally. Absent: respiratory distress, wheezes, stridor, chest wall tenderness - Cardiovascular Cardiovascular Exam: Present: regular rate, normal rhythm, normal heart sounds. Absent: systolic murmur, diastolic murmur, rubs, gallop - GI/Abdominal GI/Abdominal exam: Present: soft, normal bowel sounds. Absent: distended, tenderness, guarding, rebound, rigid, bruit - Rectal Rectal exam: Present: deferred - Extremities Exam Extremities exam: Present: normal inspection, full ROM, normal capillary refill - Back Exam Back exam: Present: normal inspection, full ROM. Absent: tenderness, CVA tenderness (R), CVA tenderness (L) - Neurological Exam Neurological exam: Present: alert, oriented X3, CN II-XII intact, normal gait - Psychiatric Psychiatric exam: Present: normal affect, normal mood - Skin Skin exam: Present: warm, dry, intact, normal color. Absent: rash ED Course Vital Signs 11/25/20 22:20 Temperature 99.5 F Pulse Rate 88 Respiratory 17 Rate Blood Pressure 125/84 O2 Sat by Pulse 99 Oximetry ED Medical Decision Making - Lab Data Result diagrams: 11/25/20 22:23 Labs 11/25/20 11/25/20 11/25/20 22:23 22:23 22:23 WBC 4.3 L RBC 4.44 Hgb 12.8 Hct 37.1 MCV 84 MCH 29 MCHC 34 RDW 11.6 L Plt Count 297 Lymph % (Auto) 28.5 [place] % (Auto) 13.4 H Eos % (Auto) 0.4 Baso % (Auto) 0.4 Lymph # (Auto) 1.2 [place] # (Auto) 0.6 Eos # (Auto) 0.0 Baso # (Auto) 0.0 Seg Neutrophils % 57.3 Seg Neutrophils # 2.5 HCG, Qual Positive HCG, Quant 22768 H Urine Color Urine Turbidity Urine pH Ur Specific [place] Urine Protein Urine Glucose (UA) Urine Ketones Urine Blood Urine Nitrite Urine Bilirubin Urine Urobilinogen Ur Leukocyte Esterase Urine WBC (Auto) Urine RBC (Auto) U Epithel Cells (Auto) Urine Mucus Blood Type 11/25/20 11/25/20 22:23 22:47 WBC RBC Hgb Hct MCV MCH MCHC RDW Plt Count Lymph % (Auto) [place] % (Auto) Eos % (Auto) Baso % (Auto) Lymph # (Auto) [place] # (Auto) Eos # (Auto) Baso # (Auto) Seg Neutrophils % Seg Neutrophils # HCG, Qual HCG, Quant Urine Color Yellow Urine Turbidity Clear Urine pH 7.0 Ur Specific [place] 1.006 Urine Protein 100 mg/dl Urine Glucose (UA) Neg Urine Ketones Neg Urine Blood Lg Urine Nitrite Neg Urine Bilirubin Neg Urine Urobilinogen < 2.0 Ur Leukocyte Esterase Neg Urine WBC (Auto) 1.0 Urine RBC (Auto) 1.0 U Epithel Cells (Auto) 6.0 Urine Mucus Few Blood Type A POSITIVE - Radiology Data Radiology results: report reviewed, image reviewed EARLY OBSTETRICAL ULTRASOUND INDICATION: vag bleed COMPARISON: None pertinent available TECHNIQUE: Transabdominal and endovaginal FINDINGS: Intrauterine gestational sac is noted with yolk sac and pole seen. Cardiac activity was documented with heart rate of 137 bpm period estimated gestational age by crown-rump length is 7 weeks 2 days which is slight ly advanced compared to the clinical dating of 6 weeks 1 day. There may be a minimal implantational bleed. Left ovary measures 4 cm in length and shows a 2.3 cm mildly complex cyst as well as a 2.2 cm mildly complex cyst. The right ovary measures 3.4 cm in length and shows no abnormalities. Flow is noted in both ovaries. No free fluid is seen. IMPRESSION: Early intrauterine at 7 weeks 2 days with cardiac activity. Possible minimal implantational bleed Signer Name: Carloz Conde MD Signed: 11/26/2020 3:12 AM Workstation Name: [id number] Transcribed By: SALOMON Dictated By: Carloz Conde MD Electronically Authenticated By: Carloz Conde MD Signed Date/Time: 11/26/20311 DD/ 7 TD/TT: - Medical Decision Making Ultrasound OB 7 weeks and 2 days heartbeat 137, small left ovarian cyst, hCG 60,007, plan follow-up with MANAGER ACCOUNT MANAGEMENT in 2 to 3 days. Pelvic rest, return to emergency should symptoms worsen. 66 360 protection protection Critical care attestation.: If time is entered above; I have spent that time in minutes in the direct care of this critically ill patient, excluding procedure time. ED Disposition Clinical Impression: Threatened miscarriage in early Ovarian cyst Qualifiers: Laterality: right Qualified Code(s): N83.201 - Unspecified ovarian cyst, right side Disposition: DC- TO HOME OR SELFCARE Is pt being admited?: No Does the pt Need Aspirin: No Condition: Stable Instructions: Threatened Miscarriage, Vaginal Bleeding During , First Trimester, [id number] Additional Instructions: follow up with OBGYN doug, return to emergency if symptoms worsen Prescriptions: Acetaminophen [Acetaminophen TAB] 650 mg PO Q6HR PRN #30 tablet PRN Reason: Pain Referrals: GELACIO SU MD [Staff Physician] - 3-5 Days Forms: Work/School Release Form(ED) Time of Disposition: 05:02
== END 2020-11-26 05:20 | disposition home or self-care (01) ==
LOC: ED 21:47
DX: O20.0 Threatened abortion (principal); O34.81 Maternal care for other abnormalities of pelvic organs, first trimester; N83.209 Unspecified ovarian cyst, unspecified side; Z3A.01 Less than 8 weeks gestation of pregnancy; Z98.890 Other specified postprocedural states; Z79.899 Other long term (current) drug therapy; Z88.8 Allergy status to other drugs, medicaments and biological substances
CPT/HCPCS: 36415; 76801; 76817; 81001; 84702; 84703; 85025; 86900; 86901

== ENCOUNTER 2021-01-26 18:17 | Emergency (ER) | payer OTHER ==
[2021-01-26 18:22] VITALS: BP 121/78
--- NOTE | 2021-01-26 21:41 | Event Note ---
ED Screening Note Date of service: 01/26/21 Time: 21:39 ED Screening Note: 30-year-old female patient (15 weeks gestation) with history of discoid lupus, on Plaquenil and Prednisone, presents to the emergency department with complaints of chest pain and shortness of breath progressively worsening for several weeks. Describes the pain as "sharp," localized to the left side of her chest, without identifiable exacerbating or relieving factors. The pain is episodic. Today, the episodes have been occurring more frequently and seem to be lasting longer. Patient experienced similar symptoms during her last , at which time she was referred to a licensed occupational therapy assistant for echocardiogram, which was unremarkable. Symptoms resolved spontaneously between her first and her current . No known history of venous thromboembolism. Tachycardic in triage. General: Awake, appropriately interactive, no acute distress. Neck: Supple. Full range of motion intact. Cardiovascular: Normal peripheral perfusion. Pulmonary: No respiratory distress. Patient is speaking normally without use of accessory muscles. Skin: No apparent rashes or lesions. Neurological: No facial asymmetry. Speech is clear. Follows commands. Patient is alert and oriented. Musculoskeletal: Moves all four extremities spontaneously with normal range of motion. Psych: Cooperative. Appropriate mood and affect. EKG, labs, chest x-ray ordered (verbal consent obtained from patient -- will shield abdomen) Further diagnostic work-up deferred to additional ED providers following complete history and comprehensive physical assessment. I have greeted and performed a focused rapid initial assessment of this patient. A comprehensive ED assessment and evaluation of the patient, analysis of all test results, and completion of the medical decision-making process will be conducted by additional ED providers. This initial assessment/diagnostic orders/clinical plan/treatment(s) is/are subject to change based on patients health status, clinical progression and re-assessment. Further treatment and workup at subsequent clinical provider's discretion. Patient/guardian urged not to elope from the ED as their condition may be serious if not clinically assessed and managed.
--- NOTE | 2021-01-26 22:18 | XRay Report ---
CHEST 1 VIEW 01/26/2021 9:08 PM INDICATION / CLINICAL INFORMATION: chest pain/SOB. COMPARISON: None available. FINDINGS: SUPPORT DEVICES: None. HEART / MEDIASTINUM: No significant abnormality. LUNGS / PLEURA: No significant pulmonary or pleural abnormality. No pneumothorax. ADDITIONAL FINDINGS: No significant additional findings. IMPRESSION: 1. No acute findings. Signer Name: Tony Drummond MD Signed: 01/26/2021 10:14 PM Workstation Name: [id number]
[2021-01-26 22:20] LABS: Basophils % (Auto) 0.2 % (0.0-1.8); Eosinophils # (Auto) 0.1 K/mm3 (0.0-0.4); Eosinophils % (Auto) 2.1 % (0.0-4.3); Hematocrit 34.6 % (30.3-42.9); Hemoglobin 11.7 gm/dl (10.1-14.3); Lymphocytes # (Auto) 1.4 K/mm3 (1.2-5.4); Lymphocytes % (Auto) 26.3 % (13.4-35.0); Mean Corpuscular HGB Conc 34 % (30-34); Mean Corpuscular Volume 84 fl (79-97); Monocytes # (Auto) 0.7 K/mm3 (0.0-0.8); Monocytes % (Auto) 14.1 % (0.0-7.3); Platelet Count 298 K/mm3 (140-440); Red Blood Count 4.11 M/mm3 (3.65-5.03); Red Cell Distribution Width 12.4 % (13.2-15.2)
[2021-01-26 22:21] LABS: Alanine Aminotransferase 9 units/L (7-56); Albumin 3.7 g/dL (3.9-5); Blood Urea Nitrogen 6 mg/dL (7-17); Calcium 9.3 mg/dL (8.4-10.2); Hemolysis Index 30
[2021-01-26 22:31] LABS: BUN/Creatinine Ratio 20
--- NOTE | 2021-01-28 17:40 | Electrocardiograph Report ---
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
== END 2021-01-27 02:47 | disposition left against medical advice (07) ==
LOC: ED 18:17
DX: R07.9 Chest pain, unspecified (principal); R06.02 Shortness of breath; Z53.21 Procedure and treatment not carried out due to patient leaving prior to being seen by health care provider
CPT/HCPCS: 36415; 71045; 80053; 83735; 85025; 93005

== ENCOUNTER 2021-05-18 12:31 | Outpatient (CLI) | payer OTHER ==
[2021-05-18] MEDS ORDERED: LACTATED RINGERS 500 ML IV ONE (12:44)
[2021-05-18 12:57] VITALS: BP 113/73
[2021-05-18] MEDS ORDERED: TERBUTALINE 1 MG/1 ML INJ SUB-Q SCH (13:00)
[2021-05-18] MEDS ORDERED: LACTATED RINGERS 1,000 ML IV ONE (13:04)
[2021-05-18 13:58] LABS: Bilirubin,Urine NEG (Negative); Blood,Urine LG (Negative); Color,Urine Yellow (Yellow); Mucus,Urine FEW /HPF; Protein,Urine <15 mg/dL mg/dL (Negative); Urobilinogen,Urine < 2.0 mg/dL (<2.0)
[2021-05-18 14:09] LABS: RBC,Urine > 182.0 /HPF (0.0-6.0)
--- NOTE | 2021-05-18 15:01 | Ultrasound Report ---
OB Ultrasound HISTORY: r/o placental abruption, check cervical length. TECHNIQUE: Grayscale and color imaging performed. COMPARISON: None. FINDINGS: There is a single viable intrauterine gestation with cephalic presentation and anterior kimberly centa. Portions of the placenta appear slightly heterogeneous, likely consistent with grade 2 appeara nce. No clear abruption identified. Heart rate is 159 bpm. Cervical length is 3.2 cm. IMPRESSION: 1. No clear placental abruption. 2. Cervical length of 3.2 cm. Signer Name: Frederick Youssef MD Signed: 05/18/2021 2:54 PM Workstation Name: [id number]
== END 2021-05-18 14:39 | disposition home or self-care (01) ==
LOC: TRG 12:31 → APU 12:32 → TRG 14:39
PROVIDERS: ATTEND Obstetrics & Gynecology
DX: Z12.31 Encounter for screening mammogram for malignant neoplasm of breast (principal); Z3A.31 31 weeks gestation of pregnancy
CPT/HCPCS: 59025; 76815; 81001; 87086